=== PATIENT | female | born 1945 | race Caucasian/White ===

== ENCOUNTER 2020-12-07 14:58 | Day surgery (SDC) | payer MEDICARE ==
[2020-12-07] MEDS ORDERED: Depo-Medrol 40 MG/ML IM ONE (14:59)
[2020-12-07] MEDS ORDERED: BUPIVACAINE 0.5% VIAL IJ ONE (14:59)
[2020-12-07] MEDS ORDERED: Xylocaine 1% Vial 30 ML PF IJ ONE (14:59)
--- NOTE | 2020-12-07 16:33 | XRAY ---
Indication: Right knee injection. Intraoperative fluoroscopy provided for 9 seconds. Single digital spot image submitted for interpretation demonstrates needle tip projecting over the right femur intercondylar notch. Small amount of contrast injected for needle tip placement. Correlate with intraoperative findings/report.
--- NOTE | 2020-12-07 16:35 | XRAY ---
9 seconds fluoroscopy time in surgery for intra-articular injection of the right knee.
--- NOTE | 2020-12-07 16:42 | XRAY ---
Indication: Left knee injection. Intraoperative fluoroscopy provided for 6 seconds. Single digital spot image submitted for interpretation demonstrates needle tip projecting over the left femur intercondylar notch. Small amount of contrast injected for needle tip placement. Correlate with intraoperative findings/report.
--- NOTE | 2020-12-07 16:45 | XRAY ---
6 seconds fluoroscopy time in surgery for intra-articular injection of the left knee.
== END 2020-12-07 16:16 | disposition home or self-care (01) ==
LOC: SDC-PAIN 14:58
PROVIDERS: ATTEND Psychiatry & Neurology Pain Medicine
DX: M17.0 Bilateral primary osteoarthritis of knee (principal); Z79.01 Long term (current) use of anticoagulants; I48.91 Unspecified atrial fibrillation; E03.9 Hypothyroidism, unspecified
CPT/HCPCS: 20610; 73560; 77002; J1030; J2001; Q9966

== ENCOUNTER 2021-05-31 17:20 | Day surgery (SDC) | payer MEDICARE ==
[2021-05-31] MEDS ORDERED: BUPIVACAINE 0.5% VIAL IJ ONE (17:21)
[2021-05-31] MEDS ORDERED: Depo-Medrol 40 MG/ML IM ONE (17:21)
[2021-05-31] MEDS ORDERED: Xylocaine 1% Vial 30 ML PF IJ ONE (17:21)
[2021-05-31 19:49] LABS: INR 2.85 (0.8-3.0); PROTIME 33.6 SECONDS (9.4-12.5)
--- NOTE | 2021-05-31 21:34 | XRAY ---
Indication: Left knee injection. Intraoperative fluoroscopy provided for 8 seconds. Single digital spot image submitted for interpretation demonstrates needle tip projecting left femur intercondylar notch. Small amount of contrast injected for needle tip placement. Correlate with intraoperative findings/report.
--- NOTE | 2021-05-31 21:34 | XRAY ---
Indication: Right knee injection. Intraoperative fluoroscopy provided for 8 seconds. Single digital spot image submitted for interpretation demonstrates needle tip projecting right femur intercondylar notch. Small amount of contrast injected for needle tip placement. Correlate with intraoperative findings/report.
--- NOTE | 2021-06-01 09:44 | XRAY ---
8 seconds of fluoroscopy was used in surgery for a left intra-articular knee injection.
--- NOTE | 2021-06-01 09:44 | XRAY ---
8 seconds of fluoroscopy was used in surgery for a right intra-articular knee injection.
== END 2021-05-31 20:35 | disposition home or self-care (01) ==
LOC: SDC-PAIN 17:20
PROVIDERS: ATTEND Psychiatry & Neurology Pain Medicine
DX: M17.0 Bilateral primary osteoarthritis of knee (principal); Z79.899 Other long term (current) drug therapy; Z79.01 Long term (current) use of anticoagulants
CPT/HCPCS: 20610; 36415; 73560; 77002; 85610; J1030; J2001; Q9966